=== PATIENT | female | born 1995 | race African-American/Black ===

== ENCOUNTER 2019-03-10 17:59 | Emergency (ER) | payer MEDICAID ==
[~2019-03-10] VITALS: Ht 157.5 cm; Wt 56.8 kg
[2019-03-10] MEDS ORDERED: KETOROLAC TROMETHAMINE 30 MG/ML VIAL IM ONE (19:45)
[2019-03-10 20:40] VITALS: BP 128/68
== END 2019-03-10 20:40 | disposition home or self-care (01) ==
LOC: EMS 18:13
DX: M54.5 Low back pain (principal); J45.909 Unspecified asthma, uncomplicated
CPT/HCPCS: 96372; 99283; J1885

== ENCOUNTER 2019-08-14 08:02 | Emergency (ER) | payer MEDICAID ==
[~2019-08-14] VITALS: Ht 157.5 cm; Wt 54.5 kg
[2019-08-14] MEDS ORDERED: IPRA4AER IH (08:17)
[2019-08-14] MEDS ORDERED: MONT4GRA2 PO (08:17)
[2019-08-14] MEDS ORDERED: IBUPROFEN 600 MG TABLET PO ONE (08:45)
[2019-08-14] MEDS ORDERED: CYCLOBENZAPRINE HCL 10 MG TABLET PO ONE (08:45)
[2019-08-14 09:25] LABS: BASOPHILS % (AUTO) 0.6 % (0.0-2.0); EOSINOPHILS % (AUTO) 1.3 % (1.0-6.0); HEMATOCRIT 34.5 % (36-46); HEMOGLOBIN 10.8 g/dL (12.0-16.0); LYMPHOCYTES # (AUTO) 1.7 K/uL (1.0-4.8); MEAN CORPUSCULAR HEMOGLOBIN 21.5 pg (26.0-34.0); MEAN CORPUSCULAR HGB CONC 31.4 G/dL (31.0-37.0); MEAN CORPUSCULAR VOLUME 69 fL (80-100); MONOCYTES # (AUTO) 0.4 K/uL (0.1-1.0); NEUTROPHILS # (AUTO) 2.6 K/uL (1.8-7.7); NEUTROPHILS % (AUTO) 55.1 % (40.0-70.0); PLATELET COUNT (AUTO) 360 K/uL (150-450); RED BLOOD CELL COUNT(AUTO) 5.04 MIL/uL (4.00-5.20)
[2019-08-14 09:54] LABS: ANION GAP 9 mmol/L (8-16); CALCIUM, TOTAL 9.5 mg/dL (8.8-10.5); CARBON DIOXIDE 28 mmol/L (22-29); CHLORIDE 104 mmol/L (98-107); GLOMERULAR FILTR. RATE CALC > 60 mL/min (>60); GLUCOSE,RANDOM 91 mg/dL (70-110); POTASSIUM 3.7 mmol/L (3.5-5.1); SODIUM SERUM 141 mmol/L (136-145); UREA NITROGEN, BLOOD 7 mg/dL (7-18)
[2019-08-14 10:11] LABS: HCG,QUANTITATIVE < 1 mIU/mL (0-6)
[2019-08-14] MEDS ORDERED: SODIUM CHLORIDE 0.9% 100 ML ONE (10:34)
[2019-08-14] MEDS ORDERED: IOVERSOL 350 MG/ML 100 ML VIAL ONE (10:34)
[2019-08-14 12:27] VITALS: BP 118/74
== END 2019-08-14 13:16 | disposition home or self-care (01) ==
LOC: EMS 08:02
DX: J45.909 Unspecified asthma, uncomplicated (principal); M54.5 Low back pain; Z79.899 Other long term (current) drug therapy
CPT/HCPCS: 36415; 71045; 71275; 80048; 84702; 85025; 85379; 93005; 99285; J7050; Q9967

== ENCOUNTER 2024-08-31 09:28 | Emergency (ER) | payer MEDICAID ==
[~2024-08-31] VITALS: Ht 157.5 cm; Wt 67.0 kg
[~2024-08-31 09:28] MED LIST: IPRA4AER IH; MONT4GRA2 PO
[2024-08-31 09:34] VITALS: TEMP 98.4
[2024-08-31] MEDS: IBUPROFEN 600 MG TABLET PO ONE (12:53)
[2024-08-31] MEDS ORDERED: METH-659 PO (13:29)
[2024-08-31] MEDS ORDERED: IBUP-1492 PO (13:29)
[2024-08-31 13:30] VITALS: BP 132/70; PULSE 84; RESP 18; O2SAT 100
== END 2024-08-31 13:43 | disposition home or self-care (01) ==
LOC: EMS 09:53
DX: S86.811A Strain of other muscle(s) and tendon(s) at lower leg level, right leg, initial encounter (principal); J45.909 Unspecified asthma, uncomplicated; Z79.899 Other long term (current) drug therapy; V43.52XA Car driver injured in collision with other type car in traffic accident, initial encounter; Y93.89 Activity, other specified; Y92.410 Unspecified street and highway as the place of occurrence of the external cause; Y99.8 Other external cause status
CPT/HCPCS: 29505; 99283

== ENCOUNTER 2025-04-10 09:29 | Emergency (ER) | payer MEDICAID, OTHER ==
[~2025-04-10] VITALS: Ht 157.5 cm; Wt 69.0 kg
[~2025-04-10 09:29] MED LIST changes: +IBUP-1492 PO; +METH-659 PO
[2025-04-10 09:35] VITALS: O2SAT 99
[2025-04-10 09:49] LABS: COVID AG,FIA SOURCE NASAL SWAB
[2025-04-10 10:27] LABS: SARS-COV2 (COVID) ANTIGEN,FIA Negative (Negative)
[2025-04-10 10:28] LABS: INFLUENZA TYPE A NEGATIVE FOR TYPE A (NEGATIVE); INFLUENZA TYPE B NEGATIVE FOR TYPE B (NEGATIVE)
[2025-04-10 10:29] LABS: RAPID GROUP A STREP NEGATIVE (NEGATIVE)
[2025-04-10] MEDS ORDERED: GUAIFDM PO (11:51)
[2025-04-10] MEDS ORDERED: ACET-2080 PO (11:51)
[2025-04-10] MEDS ORDERED: DIPH50CA37 PO (11:51)
[2025-04-10] MEDS ORDERED: IBUP-1554 PO (11:51)
[2025-04-10] MEDS: GuaiFENesin/D-METHORPHAN [SUGAR-FREE] 200-20MG/10 ML SYRUP UDCUP PO ONE (11:53)
[2025-04-10] MEDS: IBUPROFEN 600 MG TABLET PO ONE (11:53)
[2025-04-10] MEDS: ACETAMINOPHEN 500 MG TABLET PO ONE (11:53)
[2025-04-10 12:09] VITALS: BP 124/71; PULSE 72; RESP 15; TEMP 98.6
== END 2025-04-10 12:10 | disposition home or self-care (01) ==
LOC: EMS 09:35
DX: R50.9 Fever, unspecified (principal); J06.9 Acute upper respiratory infection, unspecified; R05.9 Cough, unspecified; R09.81 Nasal congestion; R09.89 Other specified symptoms and signs involving the circulatory and respiratory systems; J45.909 Unspecified asthma, uncomplicated; Z79.899 Other long term (current) drug therapy; Z20.822 Contact with and (suspected) exposure to COVID-19
CPT/HCPCS: 87430; 87804; 99284; Z7502; Z7610